=== PATIENT | female | born 1930 | race Asian ===

== ENCOUNTER 2019-09-04 18:18 | Emergency (ER) | payer OTHER ==
[~2019-09-04] VITALS: Ht 152.4 cm; Wt 49.9 kg
[2019-09-04 18:34] VITALS: Ht 152.4 cm; Wt 49.9 kg
[2019-09-04 22:34] VITALS: BP 167/78
== END 2019-09-04 21:17 | disposition home or self-care (01) ==
LOC: EDBD 18:18 → ED 18:18
DX: S09.90XA Unspecified injury of head, initial encounter (principal); I10 Essential (primary) hypertension; W01.0XXA Fall on same level from slipping, tripping and stumbling without subsequent striking against object, initial encounter; Y93.89 Activity, other specified; Y92.89 Other specified places as the place of occurrence of the external cause; Y99.8 Other external cause status
CPT/HCPCS: J0360